=== PATIENT | female | born 1995 | race Caucasian/White ===

== ENCOUNTER 2019-07-27 21:30 | Emergency (ER) | payer MEDICAID ==
[~2019-07-27] VITALS: Ht 165.1 cm; Wt 71.0 kg
[2019-07-27 23:42] VITALS: BP 115/76
[2019-07-28] MEDS ORDERED: IBUPROFEN 600MG TABLET PO ONE (00:15)
== END 2019-07-28 00:26 | disposition home or self-care (01) ==
LOC: ER 21:30
DX: S20.312A Abrasion of left front wall of thorax, initial encounter (principal); T14.8XXA Other injury of unspecified body region, initial encounter; M54.2 Cervicalgia; M54.89 Other dorsalgia; G89.11 Acute pain due to trauma; V49.49XA Driver injured in collision with other motor vehicles in traffic accident, initial encounter; Y93.89 Activity, other specified; Y92.410 Unspecified street and highway as the place of occurrence of the external cause
CPT/HCPCS: 99282

== ENCOUNTER 2022-11-24 23:33 | Emergency (ER) | payer MEDICAID ==
[~2022-11-24] VITALS: Ht 165.1 cm; Wt 92.1 kg
[2022-11-24 23:40] VITALS: O2SAT 99
[2022-11-25 00:04] LABS: BASOPHILS % 0.4 % (0.0-2.0); HEMATOCRIT. 41.6 % (36.0-48.0); HEMOGLOBIN. 13.9 g/dL (12.0-16.0); LYMPHOCYTES % 25.5 % (20.0-50.0); MEAN CORPUSCULAR HEMOGLOBIN 28.7 pg (28.0-32.0); MEAN CORPUSCULAR VOLUME 86.3 fL (81.0-99.0); MEAN PLATELET VOLUME 9.9 fl (7.4-10.4); MONOCYTES % 7.7 % (2.0-8.0); NEUTROPHILS % 62.4 % (40.0-76.0); PLATELET 304 x1000/uL (130-400); RED BLOOD CELL COUNT 4.83 mill/uL (4.2-5.4); RED CELL DISTRIBUTION WIDTH 13.8 % (11.6-14.6)
[2022-11-25 00:11] LABS: CHLORIDE 106 mEq/L (98-107)
[2022-11-25 01:22] LABS: CLARITY URINE TURBID (CLEAR); COLOR URINE YELLOW (YELLOW); KETONES URINE TRACE (NEGATIVE); LEUKOCYTE ESTERASE URINE 1+ (NEGATIVE); NITRITE URINE NEGATIVE (NEGATIVE); OCCULT BLOOD URINE NEGATIVE (NEGATIVE); PROTEIN URINE 1+ (NEGATIVE); SPECIFIC GRAVITY URINE 1.036 (1.005-1.030)
[2022-11-25] MEDS ORDERED: ONDANSETRON 4MG ODT PO ONE (03:00)
[2022-11-25] MEDS ORDERED: KETOROLAC 60MG/2ML VIAL IM ONE (03:00)
[2022-11-25 05:45] VITALS: BP 104/75; PULSE 78; RESP 16; TEMP 98
== END 2022-11-25 05:47 | disposition home or self-care (01) ==
LOC: ER 11-25 00:16
DX: R10.9 Unspecified abdominal pain (principal)
CPT/HCPCS: 80053; 83690; 85025; 99285; 74176; 76705; 81003; 81025; 36415; 96372; Q0162; J1885